=== PATIENT | male | born 1950 | race Caucasian/White ===

== ENCOUNTER 2021-05-07 08:00 | Outpatient (CLI) | payer OTHER ==
[2021-05-07 13:23] LABS: FECAL OCCULT BLOOD (FIT) NEGATIVE (NEGATIVE)
== END 2021-05-07 23:59 ==
LOC: LAB.R 08:00
PROVIDERS: ATTEND Family Medicine
DX: Z12.11 Encounter for screening for malignant neoplasm of colon (principal)
CPT/HCPCS: 82274

== ENCOUNTER 2021-05-20 07:11 | Outpatient (CLI) | payer MEDICARE ==
--- NOTE | 2021-05-20 09:07 | Ultrasound Report ---
PROCEDURE: Aorta Screening INDICATIONS: TOBACCO USER TECHNIQUE: Real time scanning was performed of the aorta and iliac arteries, with image documentatio n. COMPARISON: None FINDINGS: Aorta: Proximal aortic diameter measures 3.3 x 2.8 cm. Mid-aorta measures 2.8 x 2.6 cm. Distal aor tic diameter is 3.7 x 3.4 cm with the lumen measuring 2.9 x 2.7 cm Iliac arteries: Right common iliac artery measures 1.5 x 1.3 cm. Left common iliac artery measures 1.4 x 1.3 cm. IMPRESSION: 1. Aneurysmal dilatation of the proximal and distal aorta. 2. Eccentric mural thrombus in the distal aorta with the lumen measuring 2.9 x 2.7 cm. Reviewed by: Eric Colon on 05/20/2021 8:05 AM CORY Approved by: Eric Colon on 05/20/2021 8:05 AM CORY Station ID: [id number]
--- NOTE | 2021-05-20 14:49 | CT Report ---
PROCEDURE: Low Dose Lung Cancer Screen INDICATIONS: TOBACCO USER TECHNIQUE: Noncontrast 1mm axial images were acquired from the pulmonary apices to the posterior costophrenic an gles. Axial 5 mm soft tissue kernel reconstructions were performed as well as 8 mm axial MIP and cor onal and sagittal 5 mm reformations. For radiation dose reduction, the following was used: automate d exposure control, adjustment of mA and/or kV according to patient size. COMPARISON: None FINDINGS: Image quality: Excellent. Lungs and pleura: There is a 6 mm calcification in the left upper lobe. There is a 5 mm calcificatio n in the left lower lobe posteriorly series 6 image 126. In the right midlung posteriorly there is a pleural groundglass opacity centered on series 4 image 125. This measures approximately 2 x 4 cm an d has adjacent punctate calcifications. No soft tissue density nodules. The lungs have subpleural p araseptal emphysematous changes in the apices. No pleural effusions or pneumothorax. Central and per ipheral airways are patent and normal in caliber. Mediastinum: Heart size is normal. No pericardial effusion. The coronary arteries have atherosclero tic calcifications. No mediastinal adenopathy by size criteria. Thoracic aorta and central pulmonary arteries are normal in size. The thoracic aorta has atherosclerotic calcifications. Esophagus is nor mal in caliber. No hiatal hernia. Bones and chest wall: No suspicious bony lesions. No vertebral body compression fractures. No axil myrna or supraclavicular adenopathy by size criteria. The thyroid is normal in size. Abdomen: Visualized upper abdominal solid organs and bowel loops appear normal in the absence of con trast. IMPRESSION: No pulmonary nodules. 2. 2 x 4 cm groundglass opacity in the right upper lobe posteriorl y. Lung RADS 3. Probably benign. Recommend short-term follow-up with low-dose chest CT in 6 months. Reviewed by: Eric Colon on 05/20/2021 1:47 PM MARGIE Approved by: Eric Colon on 05/20/2021 1:47 PM [facility] Station ID: [id number]
== END 2021-05-20 07:12 | disposition home or self-care (01) ==
LOC: DI 07:11
PROVIDERS: ATTEND Family Medicine
DX: Z12.2 Encounter for screening for malignant neoplasm of respiratory organs (principal); F17.210 Nicotine dependence, cigarettes, uncomplicated; I71.4 Abdominal aortic aneurysm, without rupture

== ENCOUNTER 2021-10-31 07:07 | Outpatient (CLI) | payer MEDICARE ==
--- NOTE | 2021-10-31 10:43 | CT Report ---
PROCEDURE: Low Dose Lung Cancer Screen INDICATIONS: PULMONARY NODULE TECHNIQUE: Noncontrast low-dose images were acquired from the pulmonary apices to the posterior costophrenic ang les. Multiplanar MIP reformats were then acquired. For radiation dose reduction, the following was used: automated exposure control, adjustment of mA and/or kV according to patient size. COMPARISON: 05/20/2021 FINDINGS: Image quality: Excellent. Lungs and pleura: Mild paraseptal and centrilobular emphysematous changes at both lung apices. Diffu se groundglass opacities at the right lung apex. Several calcified subpleural lung nodules, 3 in the posterior right upper lobe, punctate anteromedial right upper lobe, 5/139, pleural-based calcificatio n in the left upper lobe at a midlung level, subpleural 5 mm calcification posterior left lower lobe, 5/262, one at the posterior medial left lung base and a 6 mm subpleural calcified nodule in the ante rolateral left upper lobe. There are no new nodules. Interval resolution of small groundglass opacity in the posterior right upp er lobe. No suspicious consolidations, pleural effusions, or pleural plaquing. Mediastinum: Heart size is normal. No pericardial effusion. No mediastinal adenopathy by size crit eria. Thoracic aorta and central pulmonary arteries are normal in size. Esophagus is normal in adalgisa lilo. No hiatal hernia. Bones and chest wall: No suspicious bony lesions. No vertebral body compression fractures. No axil myrna or supraclavicular adenopathy by size criteria. The thyroid is normal in size and there are no incidental findings. Abdomen: Visualized upper abdomen solid organs and bowel loops appear normal in the absence of contr ast. IMPRESSION: 1. Several calcified lung nodules. These are consistent with healed granulomas and are benign. 2. Lung RADS category 1 negative. Continue annual low-dose chest CT screening. 3. Interval resolution of acute right upper lobe consolidation. 4. Paraseptal and centrilobular emphysema. CLINICAL RECOMMENDATION STATEMENTS: In patients <35 years with an ITN detected on CT, MRI, or extrathyroidal ultrasound, the Committee re commends further evaluation with dedicated thyroid ultrasound if the nodule is "e1 cm and has no susp icious imaging features, and if the patient has normal life expectancy. In patients "e35 years with an ITN detected on CT, MRI, or extrathyroidal ultrasound, the Committee r ecommends further evaluation with dedicated thyroid ultrasound if the nodule is "e1.5 cm and has no s uspicious imaging features, and if the patient has normal life expectancy. (ACR, 2014) Reviewed by: Jenny Blackwood MD on 10/31/2021 10:42 AM PDT Approved by: Jenny Blackwood MD on 10/31/2021 10:42 AM PDT Station ID: [id number]
== END 2021-10-31 07:08 | disposition home or self-care (01) ==
LOC: DI 07:07
PROVIDERS: ATTEND Family Medicine
DX: R91.8 Other nonspecific abnormal finding of lung field (principal); Z72.0 Tobacco use